=== PATIENT | male | born 1985 | race Caucasian/White ===

== ENCOUNTER 2021-09-23 13:02 | Inpatient (IN) | payer MEDICAID ==
[~2021-09-23] VITALS: Ht 182.9 cm; Wt 89.8 kg
[2021-09-23] MEDS ORDERED: VISCOUS LIDOCAINE 2% 15 ML UDC PO STA (13:17)
[2021-09-23] MEDS ORDERED: ONDANSETRON 4MG ODT PO STA (13:17)
[2021-09-23] MEDS ORDERED: MAGNESIUM/ALUMINUM HYDROXIDE/SIMETHICONE 30ML UDC PO STA (13:17)
[2021-09-23] MEDS ORDERED: FAMOTIDINE 20MG TABLET PO ONE (13:30)
[2021-09-23 13:43] LABS: BASOPHILS % 0.6 % (0.0-2.0); EOSINOPHILS % 2.4 % (0.0-5.0); HEMATOCRIT. 48.2 % (42.0-52.0); HEMOGLOBIN. 16.1 g/dL (14.0-18.0); LYMPHOCYTES % 18.2 % (20.0-50.0); MEAN CORPUSCULAR HEMOGLOBIN 29.8 pg (28.0-32.0); MEAN CORPUSCULAR VOLUME 88.9 fL (80.0-94.0); MEAN PLATELET VOLUME 7.8 fl (7.4-10.4); NEUTROPHILS % 69.8 % (40.0-76.0); PLATELET 333 x1000/uL (130-400); RED BLOOD CELL COUNT 5.42 mill/uL (4.7-6.1); RED CELL DISTRIBUTION WIDTH 13.6 % (11.6-14.6)
[2021-09-23 13:44] LABS: CHLORIDE 104 mEq/L (98-107)
[2021-09-23 13:48] LABS: ETHANOL BLOOD < 10 mg/dL
[2021-09-23] MEDS ORDERED: KETOROLAC 15MG/ML VIAL IV ONE (15:45)
[2021-09-23] MEDS ORDERED: ONDANSETRON HCL 4MG/2ML INJ IV PRN (18:00)
[2021-09-23] MEDS ORDERED: ACETAMINOPHEN 650MG/20.3ML UDC PO PRN (18:00)
[2021-09-23] MEDS ORDERED: NALOXONE HCL 0.4MG/ML VIAL IV PRN (18:00)
[2021-09-23] MEDS ORDERED: TRAMADOL 50MG TABLET PO PRN (18:00)
[2021-09-23] MEDS: ENOXAPARIN 40MG/0.4ML SYR SUBCUT SCH (18:09)
[2021-09-23 18:46] LABS: CLARITY URINE CLEAR (CLEAR); COLOR URINE DARK YELLOW (YELLOW); KETONES URINE TRACE (NEGATIVE); LEUKOCYTE ESTERASE URINE NEGATIVE (NEGATIVE); NITRITE URINE NEGATIVE (NEGATIVE); OCCULT BLOOD URINE NEGATIVE (NEGATIVE); PROTEIN URINE 1+ (NEGATIVE); UROBILINOGEN URINE 0.2 E.U./dL (0.2-1.0)
[2021-09-23 18:58] LABS: *AMPHETAMINES SCREEN URINE PRESUMTIVE POSITIVE (NEGATIVE); *BARBITURATES SCREEN URINE NEGATIVE (NEGATIVE); CANNABINOID URINE SCREEN PRESUMTIVE POSITIVE (NEGATIVE); METHADONE URINE SCREEN NEGATIVE (NEGATIVE); OPIATES URINE SCREEN NEGATIVE (NEGATIVE); PHENCYCLIDINE URINE SCREEN NEGATIVE (NEGATIVE)
[2021-09-23 18:59] LABS: *BENZODIAZEPINES SCREEN URINE NEGATIVE (NEGATIVE); *COCAINE SCREEN URINE NEGATIVE (NEGATIVE)
[2021-09-23 23:00] VITALS: BP 116/85
[2021-09-24] VITALS: BP 116/85
[2021-09-24 04:00] VITALS: BP 111/67
[2021-09-24 07:35] LABS: BASOPHILS % 0.6 % (0.0-2.0); EOSINOPHILS % 4.6 % (0.0-5.0); HEMATOCRIT. 41.3 % (42.0-52.0); HEMOGLOBIN. 13.8 g/dL (14.0-18.0); LYMPHOCYTES % 30.7 % (20.0-50.0); MEAN CORPUSCULAR HEMOGLOBIN 28.9 pg (28.0-32.0); MEAN CORPUSCULAR VOLUME 86.7 fL (80.0-94.0); NEUTROPHILS % 52.1 % (40.0-76.0); PLATELET 297 x1000/uL (130-400); RED BLOOD CELL COUNT 4.77 mill/uL (4.7-6.1); RED CELL DISTRIBUTION WIDTH 13.7 % (11.6-14.6)
[2021-09-24 07:45] LABS: CHLORIDE 104 mEq/L (98-107)
[2021-09-24 08:00] VITALS: BP 110/71
[2021-09-24] MEDS ORDERED: POTASSIUM CHLORIDE 20MEQ TABLET SR PO NR (10:30)
[2021-09-24 12:00] VITALS: BP 94/60
[2021-09-24 16:00] VITALS: BP 95/51
[2021-09-24] MEDS: ENOXAPARIN 40MG/0.4ML SYR SUBCUT SCH (17:41)
[2021-09-24 20:00] VITALS: BP 102/55
[2021-09-25] VITALS: BP 106/56
[2021-09-25 04:00] VITALS: BP 93/50
[2021-09-25 08:00] VITALS: BP 105/60
[2021-09-25 12:00] VITALS: BP 107/5
[2021-09-25 13:55] VITALS: BP 140/86
== END 2021-09-25 14:50 | disposition home or self-care (01) ==
LOC: ER 13:18 → 6EST 17:09 → ENRESERV 20:29
PROVIDERS: ADMIT Family Medicine Adult Medicine; ATTEND Family Medicine Adult Medicine
DX: K80.70 Calculus of gallbladder and bile duct without cholecystitis without obstruction (principal); F15.129 Other stimulant abuse with intoxication, unspecified; F17.200 Nicotine dependence, unspecified, uncomplicated; Z20.822 Contact with and (suspected) exposure to COVID-19
CPT/HCPCS: 36415; 71045; 76705; 78227; 80048; 80053; 80305; 80320; 81003; 85025; 87426; 93005; 99285; A9537; J1650; J1885; Q0162; G0480